=== PATIENT | male | born 1985 | race Caucasian/White ===

== ENCOUNTER 2017-05-01 17:19 | Emergency (ER) | payer BC ==
[2017-05-01 17:25] VITALS: RESP 16; TEMP 97.9
--- NOTE | 2017-05-01 17:35 | EDPHY ---
HPI/HX/ROS/PE/MDM Narrative: CHIEF COMPLAINT: Elevated CPK HPI: This patient is a 31 year old male presenting following abnormal CPK blood test results following completion of a half [place] race yesterday morning. The race involves a 1.2 mile swim, 56 mile bicycle ride, and 13 mile run. During the bicycle portion, the patient felt his muscles were cramping more than usual, but he was able to complete the race. Afterwards, he presented to a local urgent care to receive IV fluids for rehydration and to prevent worsening cramping. Following another prior race, he needed to be transported by ambulance for rehydration, so he wished to avoid that situation. Yesterday evening, the laboratory called him to let him know labs showed elevated CPK and poor kidney function. Today around 14:30, he had a repeat blood test. His CPK was ten times more elevated than yesterday's level, so urgent care staff recommended he present to the emergency department for further evaluation. The patient's legs are sore, but he is otherwise asymptomatic. No urinary complaints , fever, chest pain, shortness of breath, or other associated symptoms. REVIEW OF SYSTEMS: Aside from elements discussed in the HPI, a comprehensive 10-point review of systems was reviewed and is negative. PMH: Denies. SOCIAL HISTORY: Visiting from [place]. at bedside. PHYSICAL EXAM: General:Patient is alert, in no acute distress. ENT:Eyes are normal to inspection. ENT inspection normal. Neck: Normal inspection. Full range of motion. Respiratory:No respiratory distress. Breath sounds normal bilaterally. Cardiovascular: Regular rate and rhythm. Strong peripheral pulses. Normal cap refill. Abdomen:The abdomen is nontender to palpation. There are no peritoneal signs. There are normal bowel sounds. Back: Normal to inspection. No tenderness to palpation. Skin: Normal color. No rash. Warm and dry. Extremities: Normal appearance. Full range of motion. Neuro: Oriented x3. Normal motor function. Normal sensory function. Portions of this note were transcribed by an ED scribe. I personally performed the history, physical exam, and medical decision making; and confirm the accuracy of the information in the transcribed note. ED Course: CPK increased from 1239 to 30084 in outpatient labs. Plan for rehydration, labs including CBC, BMP, CPK, Troponin, U[place] 18:29 [place] [address]. Plan to consult with nephrology. 18:[address] Colón, cardiology consultant. He recommends admission for hydration monitoring. If the patient prefers not to be admitted, he recommends repeat testing tomorrow. 18:50 Reassessed patient. He prefers to be discharged home. He understands admission would be the safest course. He will follow up tomorrow for repeat CPK testing. Return precautions discussed. He is comfortable with this plan. - Data Points Laboratory Results: Laboratory Results 05/01/17 17:45 05/01/17 17:45 05/01/17 05/01/17 17:45 17:45 WBC 6.32 10^3/uL 10^3/uL (3.80-9.50) RBC 4.52 10^6/uL 10^6/uL (4.40-6.38) Hgb 14.1 g/dL g/dL (13.7-17.5) Hct 40.4 % % (40.0-51.0) MCV 89.4 fL fL (81.5-99.8) MCH 31.2 pg pg (27.9-34.1) MCHC 34.9 g/dL g/dL (32.4-36.7) RDW 12.5 % % (11.5-15.2) Plt Count 241 10^3/uL 10^3/uL (150-400) MPV 9.1 fL fL (8.7-11.7) Neut % (Auto) 50.2 % % (39.3-74.2) Lymph % (Auto) 39.9 % % (15.0-45.0) [place] % (Auto) 7.0 % % (4.5-13.0) Eos % (Auto) 2.1 % % (0.6-7.6) Baso % (Auto) 0.5 % % (0.3-1.7) Nucleat RBC Rel Count 0.0 % % (0.0-0.2) Absolute Neuts (auto) 3.18 10^3/uL 10^3/uL (1.70-6.50) Absolute Lymphs (auto) 2.52 10^3/uL 10^3/uL (1.00-3.00) Absolute Monos (auto) 0.44 10^3/uL 10^3/uL (0.30-0.80) Absolute Eos (auto) 0.13 10^3/uL 10^3/uL (0.03-0.40) Absolute Basos (auto) 0.03 10^3/uL 10^3/uL (0.02-0.10) Absolute Nucleated RBC 0.00 10^3/uL 10^3/uL (0-0.01) Immature Gran % 0.3 % % (0.0-1.1) Immature Gran # 0.02 10^3/uL 10^3/uL (0.00-0.10) Sodium 135 mEq/L mEq/L (134-144) Potassium 4.0 mEq/L mEq/L (3.5-5.2) Chloride 101 mEq/L mEq/L (97-110) Carbon Dioxide 27 mEq/l mEq/l (22-31) Anion Gap 7 mEq/L L mEq/L (8-16) BUN 14 mg/dL mg/dL (7-23) Creatinine 1.1 mg/dL mg/dL (0.7-1.3) Estimated GFR > 60 Glucose 67 mg/dL L mg/dL (70-100) Calcium 9.5 mg/dL mg/dL (8.5-10.4) Creatine Kinase 55426 IU/L H IU/L (0-224) CK-MB (CK-2) Fraction 40.30 ng/mL H ng/mL (0-3.19) CK-MB (CK-2) % 0.3 % % (0.0-4.0) Creatine Kinase Interp NEGATIVE (NEGATIVE) Troponin I < 0.012 ng/mL ng/mL (0-0.034) Medications Given: Discontinued Medications Sodium Chloride (Ns) 1,000 mls @ 0 mls/hr IV EDNOW ONE; Wide Open PRN Reason: Protocol Stop: 05/01/17 18:39 Last Admin: 05/01/17 18:38 Dose: 1,000 mls General Time Seen by Provider: 05/01/17 17:22 Initial Vital Signs: Initial Vital Signs Temperature (C) 36.6 C 05/01/17 17:21 Heart Rate 60 05/01/17 17:21 Respiratory Rate 16 05/01/17 17:21 Blood Pressure 144/71 H 05/01/17 17:21 O2 Sat (%) 98 05/01/17 17:21 O2 Delivery Mode Room Air Allergies/Adverse Reactions: acetaminophen [From Vicodin] Allergy (Verified 05/01/17 17:25) hydrocodone [From Vicodin] Allergy (Verified 05/01/17 17:25) Home Medications: Medication Instructions Recorded NK [No Known Home Meds] 05/01/17 Departure - Departure Disposition: Home, Routine, Self-Care Clinical Impression: Rhabdomyolysis Condition: Good Instructions: Rhabdomyolysis (ED) Additional Instructions: 1. Follow up tomorrow morning for repeat CPK testing as discussed. 2. Continue to stay well hydrated. 3. Return to the emergency department if you develop difficulty with urination, blood in your urine, weakness or numbness, fever, vomiting, or other worsening of condition. Referrals: DR ANN MARIE [Other] - As per Instructions Elie Colón MD [Medical Doctor] - As per Instructions Report Scribed for: Eitan Cabrera Report Scribed by: Nazia Snider Date of Report: 05/01/17 Time of Report: 17:32
[2017-05-01 17:55] LABS: % IMMATURE GRANULYOCYTES 0.3 % (0.0-1.1); ABSOLUTE IMMATURE GRANULOCYTES 0.02 10^3/uL (0.00-0.10); ADD DIFF? NO; ADD MORPH? NO; ADD SCAN? NO; ATYPICAL LYMPHOCYTE FLAG 10 (0-99); FRAGMENT RBC FLAG 0 (0-99); HEMATOCRIT 40.4 % (40.0-51.0); HEMOGLOBIN 14.1 g/dL (13.7-17.5); LEFT SHIFT FLG 0 (0-99); LIPEMIA HEMOLYSIS FLAG 90 (0-99); MEAN CELL HEMOGLOBIN 31.2 pg (27.9-34.1); MEAN CELL HEMOGLOBIN CONCENTR. 34.9 g/dL (32.4-36.7); MEAN CELL VOLUME 89.4 fL (81.5-99.8); MEAN PLATELET VOLUME 9.1 fL (8.7-11.7); PLATELET CLUMPS FLAG 0 (0-99); PLATELET COUNT 241 10^3/uL (150-400); RED BLOOD CELL COUNT 4.52 10^6/uL (4.40-6.38); RED CELL DISTRIBUTION WIDTH 12.5 % (11.5-15.2)
[2017-05-01 18:08] LABS: ANION GAP 7 mEq/L (8-16); CALCIUM 9.5 mg/dL (8.5-10.4); CARBON DIOXIDE 27 mEq/l (22-31); CHLORIDE 101 mEq/L (97-110); CREATININE 1.1 mg/dL (0.7-1.3); GLOMERULAR FILTRATION RATE > 60; GLUCOSE 67 mg/dL (70-100); SODIUM 135 mEq/L (134-144)
[2017-05-01 18:20] LABS: TROPONIN I < 0.012 ng/mL (0-0.034)
[2017-05-01 18:27] VITALS: BP 120/70; O2SAT 97
[2017-05-01 18:27] LABS: CK-MB INTERPRETATION NEGATIVE (NEGATIVE)
[2017-05-01 18:28] VITALS: PULSE 52
[2017-05-01] MEDS ORDERED: NS 1,000 ML IV ONE (18:38)
== END 2017-05-01 19:35 | disposition home or self-care (01) ==
DX: M62.82 Rhabdomyolysis (principal); E86.9 Volume depletion, unspecified